=== PATIENT | female | born 1995 | race Two or more races ===

== ENCOUNTER 2022-05-18 07:22 | Inpatient (IN) | payer OTHER ==
[~2022-05-18] VITALS: Ht 149.9 cm; Wt 81.6 kg
[2022-05-18] MEDS ORDERED: FOLIC ACID20 MG PO (07:40)
[2022-05-18] MEDS ORDERED: PRENATAL CAPLE1 EAC1 PO (07:40)
== END 2022-05-20 14:32 | disposition home or self-care (01) | DRG 807 ==
LOC: OB/GYN 07:22 → LDR 07:22 → OB/GYN 14:33
PROVIDERS: ADMIT Obstetrics & Gynecology; ATTEND Obstetrics & Gynecology
PROC: 10E0XZZ Delivery of Products of Conception, External Approach (ICD-10-PCS; principal; 2022-05-18)
PROC: 0KQM0ZZ Repair Perineum Muscle, Open Approach (ICD-10-PCS; 2022-05-18)
PROC: 4A1HXCZ Monitoring of Products of Conception, Cardiac Rate, External Approach (ICD-10-PCS; 2022-05-18)
DX: O70.1 Second degree perineal laceration during delivery (principal); Z37.0 Single live birth; Z3A.38 38 weeks gestation of pregnancy; Z20.822 Contact with and (suspected) exposure to COVID-19